=== PATIENT | male | born 2000 | race Caucasian/White ===

== ENCOUNTER 2019-02-17 09:39 | Emergency (ER) | payer MEDICAID ==
[~2019-02-17] VITALS: Ht 182.9 cm; Wt 129.6 kg
[~2019-02-17 09:39] MED LIST: HYDR-4011 PO; IBUP-1542 PO; IBUP800T48 PO
[2019-02-17 09:53] VITALS: BP 143/66; PULSE 96; RESP 18; Ht 182.9 cm; Wt 129.6 kg
[2019-02-17] MEDS ORDERED: IBUPROFEN 600 MG TAB PO ONE (11:00)
[2019-02-17] MEDS ORDERED: HYDROCODONE/APAP (5/325) TAB PO ONE (11:00)
== END 2019-02-17 12:29 | disposition home or self-care (01) ==
LOC: FTE 09:39
DX: S89.92XA Unspecified injury of left lower leg, initial encounter (principal); W10.9XXA Fall (on) (from) unspecified stairs and steps, initial encounter; Y92.9 Unspecified place or not applicable
CPT/HCPCS: 73564; 73630; Z7502; Z7610